=== PATIENT | female | born 1990 | race Caucasian/White ===

== ENCOUNTER 2018-08-23 17:35 | Emergency (ER) | payer MEDICAID ==
[~2018-08-23] VITALS: Ht 165.1 cm; Wt 61.2 kg
[~2018-08-23 17:35] MED LIST: AMPH30TA PO
[2018-08-23 17:58] VITALS: BP 153/94
[2018-08-23] MEDS ORDERED: ACETAMINOPHEN/CODEINE#3 (300/30mg) TAB PO ONE (20:30)
[2018-08-23] MEDS ORDERED: BACLOFEN 10 MG TAB PO ONE (20:30)
== END 2018-08-23 21:12 | disposition home or self-care (01) ==
LOC: ER 17:35 → EDBD 17:35 → ER 21:12
DX: M54.2 Cervicalgia (principal); R51 Headache; M62.838 Other muscle spasm; F17.210 Nicotine dependence, cigarettes, uncomplicated; F12.10 Cannabis abuse, uncomplicated; V43.52XA Car driver injured in collision with other type car in traffic accident, initial encounter; Y93.89 Activity, other specified; Y92.488 Other paved roadways as the place of occurrence of the external cause; Y99.8 Other external cause status
CPT/HCPCS: 70450; 71111; 72125

== ENCOUNTER 2018-09-03 16:33 | Emergency (ER) | payer MEDICAID ==
[~2018-09-03] VITALS: Ht 160 cm; Wt 59.0 kg
[2018-09-03 19:03] VITALS: BP 120/79
[2018-09-03] MEDS ORDERED: HYDROcodone-ACET 10/325MG TAB PO ONE (19:45)
[2018-09-03] MEDS ORDERED: DexAMETHasone SOD PHOS 10MG/1ML VIAL INJ IM ONE (19:45)
== END 2018-09-03 20:24 | disposition home or self-care (01) ==
LOC: ER 16:42
DX: S20.212A Contusion of left front wall of thorax, initial encounter (principal); M62.838 Other muscle spasm; F17.210 Nicotine dependence, cigarettes, uncomplicated; F12.10 Cannabis abuse, uncomplicated; V89.2XXA Person injured in unspecified motor-vehicle accident, traffic, initial encounter; Y93.89 Activity, other specified; Y92.488 Other paved roadways as the place of occurrence of the external cause; Y99.8 Other external cause status
CPT/HCPCS: 71046; 93005; 96372; 99283; J1100

== ENCOUNTER 2020-12-30 14:02 | Emergency (ER) | payer MEDICAID ==
[~2020-12-30] VITALS: Ht 157.5 cm; Wt 54.4 kg
[2020-12-30 14:06] VITALS: BP 108/60
[2020-12-30] MEDS ORDERED: HYDROcodone-ACET 5/325MG TAB PO ONE (16:15)
== END 2020-12-30 16:37 | disposition home or self-care (01) ==
LOC: ER 14:02
DX: S62.633A Displaced fracture of distal phalanx of left middle finger, initial encounter for closed fracture (principal); F17.210 Nicotine dependence, cigarettes, uncomplicated; Z79.899 Other long term (current) drug therapy; W23.0XXA Caught, crushed, jammed, or pinched between moving objects, initial encounter; Y93.89 Activity, other specified; Y92.89 Other specified places as the place of occurrence of the external cause; Y99.8 Other external cause status
CPT/HCPCS: 29130; 73130

== ENCOUNTER 2021-12-20 02:57 | Emergency (ER) | payer MEDICAID ==
[2021-12-20 03:20] VITALS: BP 103/67
== END 2021-12-20 06:30 | disposition left against medical advice (07) ==
LOC: ER 02:57
DX: F41.0 Panic disorder [episodic paroxysmal anxiety] (principal); R55 Syncope and collapse; Z53.21 Procedure and treatment not carried out due to patient leaving prior to being seen by health care provider

== ENCOUNTER 2022-02-07 19:03 | Emergency (ER) | payer MEDICAID ==
[~2022-02-07] VITALS: Ht 160 cm; Wt 51.2 kg
[2022-02-07 19:03] VITALS: BP 113/63
== END 2022-02-07 23:10 | disposition left against medical advice (07) ==
LOC: ER 19:05
DX: S61.217A Laceration without foreign body of left little finger without damage to nail, initial encounter (principal); Z53.21 Procedure and treatment not carried out due to patient leaving prior to being seen by health care provider; W26.8XXA Contact with other sharp object(s), not elsewhere classified, initial encounter; Y93.89 Activity, other specified; Y92.89 Other specified places as the place of occurrence of the external cause; Y99.8 Other external cause status